=== PATIENT | female | born 2000 | race Caucasian/White ===

== ENCOUNTER 2025-01-04 22:15 | Emergency (ER) | payer BC ==
[~2025-01-04] VITALS: Ht 160 cm; Wt 86.4 kg
[2025-01-04 22:29] VITALS: BP 131/74; PULSE 103; RESP 18; TEMP 98.7; O2SAT 99
--- NOTE | 2025-01-05 00:09 | Physician Documentation ---
History of Present Illness ~ General Chief Complaint: See Chief Complaint Stated Complaint: HALLUCINATIONS Time Seen by MD: 22:26 OK to notify your PCP?: Yes Mode of Arrival: EMS History of Present Illness Initial Comments 24 year old female consumed cannabis edible today and is experiencing anxiety and hallucinations. Medication Reconciliation Allergies: Coded Allergies: doxycycline (Verified Allergy, Unknown, 01/04/25) Review of Systems All Other Systems at this time: Reviewed and Negative Physical Exam Physical Exam Vital Signs: RN Vital Signs have been reviewed: Yes, Temperature: 98.7, Source: Oral, Heart Rate: 103, Respiratory Rate: 18, BP: 131/74, Pulse Oximetry: 99, Weight: 86.360 Oxygen Flow Rate: 0 Physical Exam HEENT: PERRL, moist oral mucosa, EOMI Pulmonary: No respiratory distress MSK: no deformity Skin: w/d/i, no rash Neuro: alert, nonfocal Psych: normal affect Progress Results/Orders Results/Orders Vital Signs 01/04/25 01/04/25 22:29 23:02 Temp 98.7 Pulse 103 Resp 18 B/P (MAP) 131/74 Pulse Ox 99 O2 Flow Rate 0 Medical Decision Making Additional information obtaine: N/A Findings 24 year old female, benign presentation of drug induced psychosis. Observed, improved on reevaluation. Discharged with return precautions. Differential Diagnosis Ddx = intoxication, cannabis overdose, psychosis Departure Disposition: HOME / SELF CARE / HOMELESS Impression: Primary Impression: Cannabis overdose Condition: Stable Discharge Instructions: Preventing Marijuana Misuse Referrals: NO PRIMARY CARE PROVIDER (PCP) Education Educated: Patient Educated regarding: diagnosis, treatment, prognosis, need for follow up Signature Scribe Signature: . Attestation: . ZANDRA DELVALLE MD Jan 05, 2025 00:09
== END 2025-01-05 00:16 | disposition home or self-care (01) ==
LOC: ER 22:17
DX: T40.711A Poisoning by cannabis, accidental (unintentional), initial encounter (principal); F09 Unspecified mental disorder due to known physiological condition; Z88.1 Allergy status to other antibiotic agents; Y92.89 Other specified places as the place of occurrence of the external cause
CPT/HCPCS: 99283